=== PATIENT | female | born 1995 | race Caucasian/White ===

== ENCOUNTER 2020-02-14 11:58 | Emergency (ER) | payer OTHER ==
[2020-02-14] MEDS ORDERED: NORMAL SALINE 1000 ML 1,000 ML IV ONE (12:27)
[2020-02-14 12:38] LABS: ABSOLUTE LYMPHOCYTES (AUTO) 0.5 10^3/uL (0.5-4.7); ABSOLUTE MONOCYTES (AUTO) 0.2 10^3/uL (0.1-1.4); ABSOLUTE NEUT (AUTO) 4.2 10^3/uL (1.7-8.2); EOSINOPHILS % (AUTO) 0.1 % (0-6); HEMATOCRIT 37.8 % (36.0-47.0); LYMPHOCYTES % (AUTO) 10.8 % (13-45); MEAN CORPUSCULAR HEMOGLOBIN 30.2 pg (27.0-33.4); MEAN CORPUSCULAR HGB CONC 34.5 g/dL (32.0-36.0); MEAN CORPUSCULAR VOLUME 87 fl (80-97); MONOCYTES % (AUTO) 4.5 % (3-13); PLATELET COUNT 375 10^3/uL (150-450); RED BLOOD COUNT 4.32 10^6/uL (3.72-5.28); RED CELL DISTRIBUTION WIDTH 12.7 % (11.5-14.0); SEGMENTED NEUTROPHILS % (AUTO) 83.6 % (42-78); TOTAL CELLS COUNTED % (AUTO) 100 %
[2020-02-14 13:01] LABS: ALBUMIN 4.4 g/dL (3.5-5.0); ALKALINE PHOSPHATASE 58 U/L (38-126); ANION GAP 12 (5-19); ASPARTATE AMINO TRANSFERASE 30 U/L (14-36); BILIRUBIN,TOTAL 0.3 mg/dL (0.2-1.3); BLOOD UREA NITROGEN 13 mg/dL (7-20); CALCIUM 9.6 mg/dL (8.4-10.2); CARBON DIOXIDE 24 mmol/L (22-30); CHLORIDE 103 mmol/L (98-107); GLUCOSE 95 mg/dL (75-110); POTASSIUM 4.4 mmol/L (3.6-5.0); TOTAL PROTEIN 7.2 g/dL (6.3-8.2)
[2020-02-14 13:09] LABS: ALCOHOL < 10 mg/dL (NONE DETECTED)
--- NOTE | 2020-02-14 13:21 | RADIOLOGY REPORT (SQ) ---
EXAM DESCRIPTION: CT HEAD WITHOUT IMAGES COMPLETED DATE/TIME: 02/14/2020 1:10 pm REASON FOR STUDY: seizure COMPARISON: None. TECHNIQUE: Axial images acquired through the brain without intravenous contrast. Images reviewed wi th bone, brain and subdural windows. Additional sagittal and coronal reconstructions were generated. Images stored on PACS. All CT scanners at this facility use dose modulation, iterative reconstruction, and/or weight based d osing when appropriate to reduce radiation dose to as low as reasonably achievable (ALARA). [facility]: Dose Right [facility]: CareDose [facility]: Dose Right [facility]: Teradose 4D [facility]: [place] RADIATION DOSE: CT Rad equipment meets quality standard of care and radiation dose reduction techniq ues were employed. CTDIvol: 53.2 mGy. DLP: 1044 mGy-cm. mGy. LIMITATIONS: None. FINDINGS: VENTRICLES: Normal size and contour. CEREBRUM: No masses. No hemorrhage. No midline shift. No evidence for acute infarction. Normal gra y/white matter differentiation. No areas of low density in the white matter. CEREBELLUM: No masses. No hemorrhage. No alteration of density. No evidence for acute infarction. EXTRAAXIAL SPACES: No fluid collections. No masses. ORBITS AND GLOBE: No intra- or extraconal masses. Normal contour of globe without masses. CALVARIUM: No fracture. PARANASAL SINUSES: Retention cyst or polyp in the sphenoid sinus. SOFT TISSUES: No mass or hematoma. OTHER: No other significant finding. IMPRESSION: NORMAL BRAIN CT WITHOUT CONTRAST. EVIDENCE OF ACUTE STROKE: NO. COMMENT: Quality ID # [id number]: Final reports with documentation of one or more dose reduction techniques (e.g., Automated exposure control, adjustment of the mA and/or kV according to patient size, use of iterative reconstruction technique) TECHNICAL DOCUMENTATION: JOB ID: [id number] 2010 [employer]- All Rights Reserved Reading location - IP/workstation name: [email or web address]
--- NOTE | 2020-02-14 13:33 | RADIOLOGY REPORT (SQ) ---
EXAM DESCRIPTION: CHEST SINGLE VIEW IMAGES COMPLETED DATE/TIME: 02/14/2020 1:20 pm REASON FOR STUDY: seizure COMPARISON: None. EXAM PARAMETERS: NUMBER OF VIEWS: One view. TECHNIQUE: Single frontal radiographic view of the chest acquired. RADIATION DOSE: NA LIMITATIONS: None. FINDINGS: LUNGS AND PLEURA: No opacities, masses or pneumothorax. No pleural effusion. MEDIASTINUM AND HILAR STRUCTURES: No masses. Contour normal. HEART AND VASCULAR STRUCTURES: Heart normal in size. Normal vasculature. BONES: No acute findings. HARDWARE: None in the chest. OTHER: No other significant finding. IMPRESSION: NO ACUTE RADIOGRAPHIC FINDING IN THE CHEST. TECHNICAL DOCUMENTATION: JOB ID: [id number] 2010 [employer]- All Rights Reserved Reading location - IP/workstation name: [email or web address]
--- NOTE | 2020-02-14 14:00 | ER Document Report ---
ED General - General Chief Complaint: Probable Seizure Stated Complaint: ALTERED MENTAL STATUS Time Seen by Provider: 02/14/20 12:23 - HPI Notes: Chief complaint: Possible seizure History of present illness: 24-year-old female with history of a single seizure several years ago while she was family members believed to be a recurrent seizure today. Patient stated that she was feeling well earlier in the day and had apparently gone to visit her relatives as she was walking through the door "passed out." Family members indicate that the patient appeared to fall backward and they caught her before she hit the floor. She became rigid and had some generalized tonic-clonic movements lasting about 1 minute. There was no loss of urinary continence. Patient was briefly dazed and quickly regained her orientation. EMS was called and she was transported here. Patient says that this is similar to the prior episode that she had while which was ultimately labeled a seizure. She saw a neurologist at that time and had "some kind of a scan" which she was told was normal. She appa rently had an EEG which was "marginally abnormal" but then had another one several months later and was told this was entirely normal. She was never placed on any long-term anticonvulsant medication. Patient reports she has had problems with anxiety and depression as well as ADHD and within the last year has been on multiple medications including: Bupropion 100 mg twice daily Fluoxetine 10 mg daily Trazodone 50 mg at bedtime And within the last 2 weeks she has started taking Adderall on a as needed basis. Additionally the patient takes an unknown oral contraceptive. Denies use of alcohol or drugs. Non-smoker. Denies use of energy drinks. - Related Data Allergies/Adverse Reactions: sulfamethoxazole [From Decra] Allergy (Verified 02/14/20 12:06) trimethoprim [From Septra] Allergy (Verified 02/14/20 12:06) Past Medical History - General Information source: Patient - Social History Smoking Status: Never Smoker Chew tobacco use (# tins/day): No Frequency of alcohol use: Occasional Drug Abuse: None Lives with: Family Family History: Reviewed & Not Pertinent Neurological Medical History: Reports: Hx Seizures Endocrine Medical History: Denies: Hx Diabetes Mellitus Type 1, Hx Diabetes Mellitus Type 2 Psychiatric Medical History: Reports: Hx Anxiety, Hx Attention Deficit Hyperactivity Disorder, Hx Depression Review of Systems - Review of Systems Notes: Constitutional: Negative for fever. HENT: Negative for sore throat. Eyes: Negative for visual changes. Cardiovascular: Negative for chest pain. Respiratory: Negative for shortness of breath. Gastrointestinal: Negative for abdominal pain, vomiting or diarrhea. Genitourinary: Negative for dysuria. Musculoskeletal: Negative for back pain. Skin: Negative for rash. Neurological: As per HPI. 10 point ROS negative except as marked above and in HPI. Physical Exam - Vital signs Vitals: Resp Pulse Ox 49 H 100 02/14/20 13:08 02/14/20 13:08 - Notes Notes: GENERAL: Slender female approximately stated age appearing in no acute distress. SKIN: Good turgor no rashes. HEAD: Normocephalic atraumatic. EYES: PERRLA. EOMI. Conjunctivae and sclerae clear. EARS: CANALS AND TMS CLEAR. NOSE: CLEAR. MOUTH: Moist mucosa. Good dentition. No stridor or edema. No drooling. NECK: Supple. No masses or thyromegaly. No adenopathy. Carotids 2+ without bruits. No JVD. BACK: Symmetrical without tenderness. CHEST: Respirations unlabored. Breath sounds clear and symmetrical. HEART: Regular rhythm. No murmur gallop or rub. ABDOMEN: Soft nontender without masses, organomegaly or rebound. Bowel sounds normally active. No bruits. GENITALIA: Deferred. EXTREMITIES: No edema. No calf tenderness. Cap refill less than 1.5 seconds. Dorsalis pedis and posterior tibial pulses 3+ and symmetrical. NEUROLOGICAL: GCS 15. Alert and oriented x3. Fluent speech. Cranial nerves II through XII intact. Sensorimotor and cerebellar normal. Normal tone. PSYCHIATRIC: Appropriate affect. Course - Re-evaluation Re-evalutation: 02/14/20 15:57 Patient appeared stable on arrival here but the description of the event which occurred certainly sounds like a recurrent seizure. She had an initially normal exam here and remained stable during period of observation in emergency department. Her head CT was negative. CBC and comprehensive metabolic profile were unremarkable. EKG was unremarkable. Chest x-ray is unremarkable. Urine drug screen was positive for benzodiazepine and THC. I recommended that the patient not take further doses of Adderall as this is only a as needed medication for at this time and may be lowering her seizure threshold. She is also on some other current medications which could be problematic. I have given her routine seizure precautions including not driving or swimming and ask her to see her primary provider within the next 2 to 3 days regarding her other medications. They should also arrange for further follow-up with a neurologist. Findings, clinical impression and plan of treatment have been discussed with patient/family. Understanding of current findings and recommendations has been acknowledged by them and there is agreement regarding disposition and follow-up. - Vital Signs Vital signs: Temp Pulse Resp BP Pulse Ox 98.5 F 49 H 100 02/14/20 13:12 02/14/20 13:08 02/14/20 13:08 - Laboratory Result Diagrams: 02/14/20 12:11 02/14/20 12:11 Laboratory results interpreted by me: 02/14/20 12:11 Lymph % (Auto) 10.8 L Seg Neutrophils % 83.6 H - Diagnostic Test Radiology reviewed: Image reviewed, Reports reviewed Radiology results interpreted by me: 02/14/20 15:[address] 02/14/20 12:27 IMPRESSION: NORMAL BRAIN CT WITHOUT CONTRAST. EVIDENCE OF ACUTE STROKE: NO. Chest X-Ray 02/14/20 12:28 IMPRESSION: NO ACUTE RADIOGRAPHIC FINDING IN THE CHEST. - EKG Interpretation by Me Additional EKG results interpreted by me: 02/14/20 15:21 Twelve-lead EKG reviewed by me contemporaneously: 1208 hours Indication for study: Altered mental status/possible seizure Rhythm: Sinus tachycardia Rate: 100 Intervals: Normal QRS axis: +[address]/T wave changes: None Comparison with prior tracing: None Interpretation: Sinus tachycardia Discharge - Discharge Clinical Impression: Recurrent seizures Condition: Stable Disposition: HOME, SELF-CARE Additional Instructions: Seizure You have had a seizure. Seizure disorders (epilepsy) of one sort or another affect about one out of 50 people. The seizure occurs because of abnormal electrical activity in the brain. Seizures may be due to drugs and alcohol, strokes, brain injury, or infection. In the most common form of epilepsy, no cause can be found. You will require further evaluation to determine the cause of your seizure, and to determine whether anti-seizure medication is required. This follow-up testing is important, so please call us if you encounter problems with scheduling of tests or appointments. YOU SHOULD NOT DRIVE until released to do so by your physician. The law requires that seizures be reported to the driver manager's license bureau--a seizure while driving could be catastrophic. Call the doctor if seizures recur, or if you develop new symptoms such as fever, severe headache, stiff neck, confusion or increasing sleepiness, weakness or numbness, or visual problems. Stop your Adderall at this time. See your primary care provider within the next 48 hours to discuss your other medications and asked them to refer you back to a neurologist. Return here as needed for new or worsening symptoms: Any recurrence of seizure activity Pain that is worsening or unimproved Uncontrolled vomiting High fever or shaking chills Overall worsening
[2020-02-14 15:48] LABS: URINE AMPHETAMINES SCREEN NEGATIVE; URINE BARBITURATES SCREEN NEGATIVE; URINE COCAINE SCREEN NEGATIVE; URINE METHADONE SCREEN NEGATIVE; URINE PHENCYCLIDINE SCREEN NEGATIVE
[2020-02-14 15:49] LABS: AMORPHOUS SEDIMENT,URINE TRACE /HPF; APPEARANCE,URINE CLOUDY; BILIRUBIN,URINE NEGATIVE (NEGATIVE); COLOR,URINE YELLOW; GLUCOSE, URINE NEGATIVE (NEGATIVE); KETONES,URINE NEGATIVE (NEGATIVE); LEUKOCYTE ESTERASE,URINE NEGATIVE (NEGATIVE); NITRITE,URINE NEGATIVE (NEGATIVE); PROTEIN,URINE NEGATIVE (NEGATIVE); URINE BENZODIAZEPINES SCREEN UNCONFIRMED POSITIVE; URINE MARIJUANA (THC) SCREEN UNCONFIRMED POSITIVE; URINE SPECIFIC GRAVITY 1.011; UROBILINOGEN,URINE NEGATIVE mg/dL (<2.0)
[2020-02-14 16:32] VITALS: BP 103/69
--- NOTE | 2020-02-16 18:10 | EKG REPORT ---
SEVERITY:- OTHERWISE NORMAL ECG - SINUS TACHYCARDIA : Confirmed by: Mauricio Hernández MD 16-Feb-2020 18:09:02
== END 2020-02-14 16:00 | disposition home or self-care (01) ==
LOC: ER 11:58
DX: R56.9 Unspecified convulsions (principal); R41.82 Altered mental status, unspecified
CPT/HCPCS: 99285; 96360; 96361; 36415; 80307 ×2; 83735; 84703; 85025; 80053; 81001; 71045; 70450; J7030; 93005; 93010